=== PATIENT | male | born 1960 | race Caucasian/White ===

== ENCOUNTER → 2017-04-09 | Outpatient (CLI) | payer BC ==
[2015-09-04 10:45] VITALS: BP 115/77
[~2017-04-09] MED LIST: ASPI325T8 PO; CEPH-264 PO; OXYC-327 PO
--- NOTE | 2017-04-09 14:33 | KCIC ---
Scrotal ultrasound Indication: TECHNIQUE: Multiple Realtime basal sonographic images obtained of the scrotum. FINDINGS: The right testicle measures 4.8 x 2.2 x 3.0 cm. The right epididymis demonstrates a 1.5 x 1.0 x 1.2 cm cyst. The left testicle measures 4.8 x 2.2 x 3.9 cm. Normal blood flow is identified. A 3.2 x 2.2 x 4.4 cm septated epididymal cyst is noted near the epididymal head. There is also a 7.3 x 4.9 x 9.5 cm septated inferior left scrotal hydrocele. IMPRESSION: Negative for testicular torsion. There are bilateral epididymal cysts larger on the left which measures up to 4.4 cm. There is also a septated hydrocele of the left scrotal sac measuring up to 7.3 cm. Electronically signed by: Kingston Choudhary MD (04/09/2017 2:30 PM)
== END | disposition home or self-care (01) ==
LOC: KCIC US 11:41
PROVIDERS: ATTEND Nurse Practitioner Occupational Health
DX: N50.3 Cyst of epididymis (principal); N43.40 Spermatocele of epididymis, unspecified
CPT/HCPCS: 76870